=== PATIENT | male | born 1970 | race Caucasian/White ===

== ENCOUNTER 2019-04-13 04:50 | Emergency (ER) | payer BC ==
[2019-04-13 05:02] VITALS: BP 146/90; PULSE 89; RESP 18; TEMP 98; O2SAT 96; BMI 31.6
--- NOTE | 2019-04-13 05:27 | ED PDOC ---
Arrival/HPI <Kin Senior - Last Filed: 04/13/19 06:11> - General Historian: Patient - History of Present Illness Narrative History of Present Illness (Text): 04/13/19 05:23 CC: difficulty sleeping for past 2 days HPI: 48 yo male w/ PMH of anxiety comes to ED for evaluation of difficulty sleeping. Patient states that he has been having difficulty sleeping for past two days. Patient states that he thinks this is due to recent weight gain of 7 lbs. Patient states he snores which wakes him up making it further difficult to sleep. Had prior episode in the past for which an oral dose of lorazepam fixed the issue. Patient states he took multiple melatonins at home but has not offered him any rest. Denies fevers, chills, chest pain, sob, n/v, constipation or diarrhea, and dysuria. Time/Duration: < week Symptom Onset: Sudden Symptom Course: Unchanged Activities at Onset: Sleeping Context: Sitting <Chong Madrid - Last Filed: 04/13/19 06:16> - General Chief Complaint: Anxiety Time Seen by Provider: 04/13/19 05:14 Past Medical History - Provider Review Nursing Documentation Reviewed: Yes Primary Care Provider: Figueroa Stevenson - Cardiac Hx Cardiac Disorders: No - Pulmonary Hx Sleep Apnea: Yes - Psychiatric Hx Psychophysiologic Disorder: Yes Hx Anxiety: Yes Hx Substance Use: No Other/Comment: insomnia - Anesthesia Hx Anesthesia: No <Chong Madrid - Last Filed: 04/13/19 06:16> Family/Social History - Physician Review Nursing Documentation Reviewed: Yes Family/Social History: No Known Family HX Smoking Status: Never Smoked Hx Alcohol Use: Yes (1 - 2 x per week.) Frequency of alcohol use: Few days per week Hx Substance Use: No <Chong Madrid - Last Filed: 04/13/19 06:16> Allergies/Home Meds <Kin Senior - Last Filed: 04/13/19 06:11> <Chong Madrid - Last Filed: 04/13/19 06:16> Allergies/Adverse Reactions: Allergies No Known Allergies Allergy (Verified 04/13/19 06:09) Review of Systems - Review of Systems Constitutional: Fatigue, Weight Change. absent: Normal, Fevers, Night Sweats Eyes: Normal ENT: Normal Respiratory: Normal. absent: SOB, Cough Cardiovascular: Normal. absent: Chest Pain Gastrointestinal: Normal. absent: Abdominal Pain, Diarrhea, Vomiting Genitourinary Male: Normal. absent: Dysuria, Frequency, Hematuria Musculoskeletal: Normal. absent: Arthralgias, Back Pain, Neck Pain Skin: Normal. absent: Rash Neurological: Normal. absent: Headache, Dizziness, Focal Weakness Endocrine: Normal. absent: Diaphoresis, Polyuria Psychiatric: Anxiety. absent: Normal, Depression <Chong Madrid - Last Filed: 04/13/19 06:16> Physical Exam Vital Signs Temp Pulse Resp BP Pulse Ox 04/13/19 05:01 98 F 89 18 146/90 96 <Kin Senior - Last Filed: 04/13/19 06:11> Vital Signs Reviewed: Yes Vital Signs Temp Pulse Resp BP Pulse Ox 04/13/19 05:01 98 F 89 18 146/90 96 Temperature: Afebrile Blood Pressure: Normal Pulse: Regular Respiratory Rate: Normal Appearance: Positive for: Well-Appearing, Non-Toxic, Comfortable Pain Distress: None Mental Status: Positive for: Alert and Oriented X 3 - Systems Exam Head: Present: Atraumatic, Normocephalic. No: Tenderness, Ecchymosis Pupils: Present: PERRL Extroacular Muscles: Present: EOMI Conjunctiva: Present: Normal Mouth: Present: Moist Mucous Membranes Neck: Present: Normal Range of Motion. No: Meningeal Signs, JVD Respiratory/Chest: Present: Clear to Auscultation, Good Air Exchange. No: Respiratory Distress, Accessory Muscle Use Cardiovascular: Present: Regular Rate and Rhythm, Normal S1, S2. No: Murmurs Abdomen: Present: Normal Bowel Sounds. No: Tenderness, Distention, Peritoneal Signs Upper Extremity: Present: Normal Inspection. No: Cyanosis, Edema Lower Extremity: Present: Normal Inspection. No: Edema Neurological: Present: GCS=15, CN II-XII Intact, Speech Normal Skin: Present: Warm, Dry, Normal Color. No: Rashes Psychiatric: Present: Alert, Oriented x 3, Normal Insight, Normal Concentration <Chong Madrid - Last Filed: 04/13/19 06:16> Medical Decision Making ED Course and Treatment: Impression: Pt seen and evaluated with senior medical director. Aware and agree with HPI, clinical findings, plan, and management. Pt, whose past medical history includes anxiety, who presents to the ED complaining of difficulty sleeping. Plan: -- Ativan -- Reassess and disposition - Medication Orders Current Medication Orders: Discontinued Medications Lorazepam (Ativan) 2 mg PO ONCE ONE; Protocol Stop: 04/13/19 05:24 Last Admin: 04/13/19 05:34 Dose: 2 mg <ParrishKin - Last Filed: 04/13/19 06:11> ED Course and Treatment: 04/13/19 05:28 Impression 48 yo male w/ PMH of anxiety comes to ED for evaluation of difficulty sleeping. Patient states that he has been having difficulty sleeping for past two days. Plan -Lorazepam 2 mg Prior Visits All prior documentation and lab work reviewed prior to this evaluation Progress Notes pending clinical response to Ativan Patient still unable to sleep Will prescribed oral Atarax for discharge Please f/u with Dr. Stevenson within a week of discharge 04/13/19 06:15 Re-evaluation Time: 06:15 Reassessment Condition: Re-examined, Unchanged <Chong Madrdi - Last Filed: 04/13/19 06:16> - PA / [employer] / Resident Statement CARLOS has reviewed & agrees with the documentation as recorded. / has examined the patient and agrees with the treatment plan. <Kin Senior - Last Filed: 04/13/19 06:11> Disposition/Present on Arrival <Kin Seniro - Last Filed: 04/13/19 06:11> - Present on Arrival Any Indicators Present on Arrival: No History of DVT/PE: No History of Uncontrolled Diabetes: No Urinary Catheter: No History of Decub. Ulcer: No History Surgical Site Infection Following: None - Disposition Have Diagnosis and Disposition been Completed?: Yes Disposition Time: 06:16 Patient Plan: Discharge <Chong Madrid - Last Filed: 04/13/19 06:16> - Disposition Diagnosis: Anxiety, Insomnia Disposition: HOME/ ROUTINE Condition: FAIR Additional Instructions: 1. Please f/u with Dr. Stevenson within a week of discharge from hospital. 2. If symptoms worsen or recur please reutnr to hospital Prescriptions: hydrOXYzine HCl [Atarax] 25 mg PO Q8H PRN #15 tab PRN Reason: Anxiety Referrals: Figueroa Stevenson MD [Staff Provider] - Follow up with primary Forms: IN[employer] (Portuguese)
== END 2019-04-13 06:34 | disposition home or self-care (01) ==
LOC: ED 04:50
DX: G47.00 Insomnia, unspecified (principal); F41.9 Anxiety disorder, unspecified